=== PATIENT | female | born 1945 | race Caucasian/White ===

== ENCOUNTER 2025-04-14 10:37 | Inpatient (IN) | payer OTHER, MEDICARE ==
[2025-04-09 10:19] VITALS: BMI 36.3
[~2025-04-14 10:37] MED LIST: ACETAMINOPHEN INJECTION 100 ML ONE; BUPIVACAINE HCL/PF 0.5% (5MG/ML) 10 ML VIAL ONE; MAG HYDROX/AL HYDROX/SIMETH 30 ML UNIT-DOSE CUP PO PRN; MAGNESIUM HYDROX 2400MG/30ML ORAL SUSPENSION 30 ML CUP PO PRN; MIDAZOLAM HCL 2 MG/2 ML SINGLE DOSE VIAL ONE; ONDANSETRON 4 MG/2 ML VIAL IVPUSH PRN; ONDANSETRON 4 MG/2 ML VIAL ONE; PHENYLEPHRINE HCL 10 MG/1 ML SINGLE DOSE VIAL ONE; PROMETHAZINE HCL 25 MG/1 ML VIAL IVPB PRN; PROPOFOL 20 ML ONE; ROPIVACAINE HCL 0.5% 30ML VIAL ONE; TRANEXAMIC ACID 1000 MG/10 ML VIAL ONE
[2025-04-14] MEDS ORDERED: ACETAMINOPHEN 1000 MG/100 ML BAG IVPB SCH (10:45)
[2025-04-14] MEDS ORDERED: LACTATED RINGERS SOLUTION 1,000 ML IV SCH (10:45)
[2025-04-14] MEDS ORDERED: MAG HYDROX/AL HYDROX/SIMETH 30 ML UNIT-DOSE CUP PO PRN (10:47)
[2025-04-14] MEDS ORDERED: MAGNESIUM HYDROX 2400MG/30ML ORAL SUSPENSION 30 ML CUP PO PRN (10:47)
[2025-04-14] MEDS ORDERED: PROMETHAZINE HCL 25 MG/1 ML VIAL IVPB PRN (10:47)
[2025-04-14] MEDS ORDERED: ONDANSETRON 4 MG/2 ML VIAL IVPUSH PRN ×2 (10:47)
[2025-04-14] MEDS: levETIRAcetam 500 MG TABLET (FP) PO SCH (16:23)
[2025-04-14] MEDS: LACTATED RINGERS SOLUTION 1,000 ML IV SCH (16:25)
[2025-04-14] MEDS ORDERED: CEFAZOLIN SODIUM 2 GM in DEXTROSE 5%-WATER 100 ML IVPB SCH (18:00)
[2025-04-14] MEDS: CEFAZOLIN 2 GM/D5W 2 GRAM/50 ML ML IVPB SCH (18:44)
[2025-04-14] MEDS: ACETAMINOPHEN 1000 MG/100 ML BAG IVPB SCH (18:45)
[2025-04-14] MEDS: SENNOSIDES/DOCUSATE COMBO (SENNA PLUS) TABLET (UD) PO SCH (21:20)
[2025-04-14] MEDS: FAMOTIDINE 20 MG TABLET PO SCH (21:22)
[2025-04-14] MEDS: DEXAMETHASONE 4 MG TABLET (FP) PO SCH (21:22)
[2025-04-14] MEDS: ASPIRIN 81 MG CHEWABLE TABLETS PO SCH (21:22)
[2025-04-14] MEDS: TRANEXAMIC ACID 1000 MG/10 ML VIAL IVPB SCH (21:23)
[2025-04-14] MEDS ORDERED: levETIRAcetam 500 MG TABLET (FP) PO SCH (22:00)
[2025-04-14] MEDS ORDERED: SENNOSIDES/DOCUSATE COMBO (SENNA PLUS) TABLET (UD) PO SCH (22:00)
[2025-04-14] MEDS ORDERED: DEXAMETHASONE 4 MG TABLET (FP) PO SCH (22:00)
[2025-04-14] MEDS ORDERED: FAMOTIDINE 20 MG TABLET PO SCH (22:00)
[2025-04-14] MEDS ORDERED: ASPIRIN 81 MG CHEWABLE TABLETS PO SCH (22:00)
[2025-04-14] MEDS ORDERED: TRANEXAMIC ACID 1000 MG/10 ML VIAL IVPUSH SCH ×2 (22:00)
[2025-04-15 01:59] VITALS: RESP 20
[2025-04-15] MEDS ORDERED: ATENOLOL 25 MG TABLET (FP) PO SCH (10:00)
[2025-04-15] MEDS ORDERED: MULTIVITAMINS (DAILY MVI) TABLET (FP) PO SCH (10:00)
[2025-04-15] MEDS: MULTIVITAMINS (DAILY MVI) TABLET (FP) PO SCH (11:12)
[2025-04-15] MEDS: ATENOLOL 25 MG TABLET (FP) PO SCH (11:14)
[2025-04-15 14:05] VITALS: BP 129/72; PULSE 80; TEMP 97.7
== END 2025-04-15 17:01 | disposition home or self-care (01) | DRG 470 ==
LOC: FASUSAT 10:37 → FM/S 11:47 → FASUSAT 13:39
PROVIDERS: ADMIT Orthopaedic Surgery; ATTEND Orthopaedic Surgery
PROC: 0SRD0JZ Replacement of Left Knee Joint with Synthetic Substitute, Open Approach (ICD-10-PCS; principal; 2025-04-14 08:28)
DX: M17.12 Unilateral primary osteoarthritis, left knee (principal)
CPT/HCPCS: 73560-TC-LT-FY; 94760; 97010-GP; 97116-GP; 97161-GP; C1776